=== PATIENT | female | born 1940 | race Caucasian/White ===

== ENCOUNTER 2021-04-14 03:51 | Emergency (ER) | payer MEDICARE ==
[~2021-04-14] VITALS: Ht 160 cm; Wt 57.6 kg
[~2021-04-14 03:51] MED LIST: ALPRAZOLAM0.25 MG PO; ASPIRIN EC325 MG PO; BUTALB-ACETAMI1 EACH PO; CARTIA XT180 MG PO; COZAAR25 MG PO; ECHINACEA125 MG PO; FUROSEMIDE20 MG PO; HYDROCODON-ACE1 EA11 PO; INDOMETHACIN25 MG PO; L-LYSINE500 M1 PO; LEVOTHYROXINE50 MCG PO; LISINOPRIL20 MG PO; MILK THISTLE175 MG PO; MULTI VITAMIN1 EACH PO; NIFEDIPINE20 MG PO; VITAMIN B-1250 MCG PO; VITAMIN B-50 C0.4 MG PO; VITAMIN D5000 UNIT PO; XANAX0.25 MG PO; [UNRECOGNIZED DRUG - REMARK]
--- OUTSIDE RECORDS SUMMARY | 2021-04-14 03:54 | XMS ---
PreManage Notification: RADHA HALL [employer] Operator Events No recent Security Events currently on file CRITERIA MET - [facility] CARE PROVIDERS KIMBERLY AMARO [facility] Current PHONE: [phone] HEMA FLEMING Nurse Practitioner Current PHONE: [phone] Kathrin has no Care Guidelines for this patient. EJone VISIT COUNT (12 MO.) Ady García TOTAL 1 NOTE: Visits indicate total known visits. ED/UCC VISIT TRACKING (12 MO.) 04/14/2021 03:52 [facility] TYPE: Emergency COMPLAINT: - MUSCLE SPASMS INPATIENT VISIT TRACKING (12 MO.) No inpatient visits to display in this time frame [email or web address]
[2021-04-14] MEDS ORDERED: ZANAFLEX4 MG PO (05:18)
[2021-04-14] MEDS ORDERED: HYDROCODON-ACE1 EA10 PO (09:39)
[2021-04-14] MEDS ORDERED: LIDODERM1 EACH TOP (09:39)
== END 2021-04-14 09:57 | disposition home or self-care (01) ==
LOC: ED 03:51
DX: M62.830 Muscle spasm of back (principal); I12.9 Hypertensive chronic kidney disease with stage 1 through stage 4 chronic kidney disease, or unspecified chronic kidney disease; N18.30 Chronic kidney disease, stage 3 unspecified; E03.9 Hypothyroidism, unspecified; Z87.891 Personal history of nicotine dependence; Z79.899 Other long term (current) drug therapy; Z79.82 Long term (current) use of aspirin
CPT/HCPCS: 96374; 96375; 99283-25; A9270; J2270; J3360